=== PATIENT | female | born 1940 | race Caucasian/White ===

== ENCOUNTER → 2018-05-16 08:07 | Outpatient (REF) | payer OTHER, SELFPAY ==
[2018-05-16 22:00] LABS: HCT 39.2 % (36.0-46.0); HGB 12.8 g/dL (12.0-15.5); Mean Corp. HGB Concentration 32.7 g/dL (32.0-36.0); Mean Corpuscular Volume 94.9 fL (80-95); Platelet Count 267 x1000/uL (130-400); RBC 4.13 m/cumm (4.00-5.20); RBC Distribution Width 12.9 % (11.7-14.6); White Blood Cell Count 5.59 k/cumm (4.4-10.8)
[2018-05-16 22:37] LABS: ALT 30 U/L (12-78); AST 20 U/L (15-37); Albumin 3.6 g/dL (3.4-5.0); Alkaline Phosphatase 103 U/L (46-116); Anion Gap 7.8 mmol/L (3-11); BUN 9 mg/dL (7-18); Bilirubin, Total 0.4 mg/dL (0.2-1.0); CO2 27.2 mmol/L (21.0-32.0); CREATININE 0.78 mg/dL (0.55-1.02); Calcium 8.9 mg/dL (8.5-10.1); Chloride 105 mmol/L (98-107); Cholesterol 229 mg/dL (50-200); Glucose 93 mg/dL (70-100); HDL Cholesterol 97 mg/dL (40-60); LDL CHOLESTEROL 118 mg/dL (<100); Potassium 4.2 mmol/L (3.5-5.1); Sodium 140 mmol/L (136-145); TSH (W/Ref FT4) 2.19 uIU/mL (0.358-3.74); Total Protein 7.1 g/dL (6.4-8.2); Triglyceride 59 mg/dL (30-150)
== END ==
LOC: NCHCN 08:07
PROVIDERS: PCP Nurse Practitioner Family; Visit Provider Nurse Practitioner Family
DX: K62.5 Hemorrhage of anus and rectum (principal); F10.10 Alcohol abuse, uncomplicated; Z87.898 Personal history of other specified conditions
CPT/HCPCS: 80053; 80061; 83721; 85027; 84443

== ENCOUNTER 2018-07-03 09:56 | Outpatient (REF) | payer OTHER, SELFPAY ==
[2018-07-04 06:04] LABS: Vitamin D 25 Total 31.4 ng/ml (30-100)
== END 2018-07-03 10:16 ==
LOC: NCHCN 09:56
PROVIDERS: PCP Nurse Practitioner Family; Visit Provider Nurse Practitioner Family
DX: M85.80 Other specified disorders of bone density and structure, unspecified site (principal)
CPT/HCPCS: 82306

== ENCOUNTER 2019-12-23 16:36 | Outpatient (REF) | payer OTHER, SELFPAY ==
[2019-12-23 23:09] LABS: Anion Gap 8.6 mmol/L (3-11); BUN 17 mg/dL (7-18); CO2 30.4 mmol/L (21.0-32.0); CREATININE 0.66 mg/dL (0.55-1.02); Calcium 9.5 mg/dL (8.5-10.1); Chloride 101 mmol/L (98-107); Glucose 87 mg/dL (74-106); Magnesium 2.2 mg/dL (1.8-2.4); Potassium 4.1 mmol/L (3.5-5.1); Sodium 140 mmol/L (136-145); Vitamin B12 610 pg/mL (193-986)
== END 2019-12-23 16:56 ==
LOC: NCHCN 16:36
PROVIDERS: PCP Nurse Practitioner Family; Visit Provider Nurse Practitioner Family
DX: Z51.81 Encounter for therapeutic drug level monitoring (principal)
CPT/HCPCS: 80048; 82607; 83735

== ENCOUNTER 2020-12-09 16:23 | Outpatient (REF) | payer OTHER, SELFPAY ==
[2020-12-09 19:52] LABS: Absolute Basophil Count 0.05 10^3/uL (0.0-0.2); Absolute Eosinophil Count 0.17 10^3/uL (0.0-0.7); Absolute Monocyte Count 0.61 10^3/uL (0.1-0.8); Absolute Neutrophil Count 3.77 10^3/uL (1.2-6.7); Basophils % 0.9; HCT 37.6 % (36.0-46.0); HGB 12.3 g/dL (11.2-15.7); Lymphocytes % 17.9; MCH 30.9 pg (27.0-33.0); MCHC 32.7 % (32.0-36.0); MCV 94.5 fL (80-95); MPV 9.6 fL (8.0-11.0); Monocytes % 10.9; Neutrophils % 67.3; Nucleated RBC 0 %; Platelet Count 241 10^3/uL (130-400); RBC 3.98 10^6/uL (3.93-5.22); RDW-SD 41.8 fL
[2020-12-09 20:14] LABS: ALT 132 U/L (14-59); AST 93 U/L (15-37); Albumin 3.5 g/dL (3.4-5.0); Alkaline Phosphatase 214 U/L (46-116); Anion Gap 11.4 mmol/L (3-11); BUN 9 mg/dL (7-18); Bilirubin, Total 0.3 mg/dL (0.2-1.0); CO2 25.6 mmol/L (21.0-32.0); CREATININE 0.7 mg/dL (0.55-1.02); Calcium 9.1 mg/dL (8.5-10.1); Chloride 103 mmol/L (98-107); Glucose 99 mg/dL (74-106); Potassium 3.9 mmol/L (3.5-5.1); Sodium 140 mmol/L (136-145); Total Protein 7.4 g/dL (6.4-8.2)
[2020-12-09 20:58] LABS: Uric Acid 3.1 mg/dL (2.6-6.0)
== END 2020-12-09 16:24 | disposition home or self-care (01) ==
LOC: NCHCN 16:23
PROVIDERS: PCP Nurse Practitioner Family; Visit Provider Nurse Practitioner Family
DX: M79.89 Other specified soft tissue disorders (principal); Z13.828 Encounter for screening for other musculoskeletal disorder; R79.89 Other specified abnormal findings of blood chemistry
CPT/HCPCS: 80053; 84550; 85025

== ENCOUNTER 2020-12-23 20:40 | Outpatient (REF) | payer OTHER, SELFPAY ==
[2020-12-23 21:19] LABS: ALT 33 U/L (14-59); AST 20 U/L (15-37); Albumin 3.7 g/dL (3.4-5.0); Alkaline Phosphatase 136 U/L (46-116); Anion Gap 9.2 mmol/L (3-11); BUN 15 mg/dL (7-18); Bilirubin, Total 0.2 mg/dL (0.2-1.0); CO2 28.8 mmol/L (21.0-32.0); CREATININE 0.8 mg/dL (0.55-1.02); Calculated LDL 120 mg/dL (<100); Chloride 102 mmol/L (98-107); Cholesterol 226 mg/dL (<200); Glucose 112 mg/dL (74-106); HDL Cholesterol 79 mg/dL (40-60); Potassium 4.2 mmol/L (3.5-5.1); Sodium 140 mmol/L (136-145); Total Protein 7.4 g/dL (6.4-8.2); Triglyceride 136 mg/dL (<150)
[2020-12-27 10:01] LABS: HBs Antibody, Quant 24.6 mIU/mL (See Note); Hepatitis B Surface Ab Positive (See Note)
[2020-12-27 11:02] LABS: Hepatitis C Ab w Rflx HCV PCR Negative (Negative)
== END 2020-12-23 20:41 | disposition home or self-care (01) ==
LOC: NCHCN 20:40
PROVIDERS: PCP Nurse Practitioner Family; Visit Provider Nurse Practitioner Family
DX: R94.5 Abnormal results of liver function studies (principal); Z11.59 Encounter for screening for other viral diseases; E78.89 Other lipoprotein metabolism disorders
CPT/HCPCS: 80053; 80061; 86706; 86803

== ENCOUNTER 2021-01-10 15:56 | Outpatient (REF) | payer OTHER, SELFPAY ==
[2021-01-10 21:22] LABS: GGT 51 U/L (5-55)
[2021-01-10 21:24] LABS: Hemoglobin A1C 5.7 % (<5.7)
[2021-01-10 21:48] LABS: Vitamin D 25 Total 44.5 ng/mL (30-100)
== END 2021-01-10 15:57 | disposition home or self-care (01) ==
LOC: NCHCN 15:56
PROVIDERS: PCP Nurse Practitioner Family; Visit Provider Nurse Practitioner Family
DX: R73.9 Hyperglycemia, unspecified (principal); E55.9 Vitamin D deficiency, unspecified; M81.0 Age-related osteoporosis without current pathological fracture; R74.8 Abnormal levels of other serum enzymes
CPT/HCPCS: 82306; 82977; 83036

== ENCOUNTER 2021-04-04 20:21 | Outpatient (REF) | payer OTHER, SELFPAY ==
[2021-04-04 20:35] LABS: HCT 39.2 % (36.0-46.0); HGB 12.5 g/dL (11.2-15.7); MCH 30.7 pg (27.0-33.0); MCHC 31.9 % (32.0-36.0); MCV 96.3 fL (80-95); MPV 9.7 fL (8.0-11.0); Platelet Count 255 10^3/uL (130-400); RBC 4.07 10^6/uL (3.93-5.22); RDW 12.8 % (11.7-14.6); WBC 6.88 10^3/uL (4.4-10.8)
[2021-04-04 20:54] LABS: ALT 23 U/L (14-59); AST 17 U/L (15-37); Albumin 3.8 g/dL (3.4-5.0); Alkaline Phosphatase 82 U/L (46-116); Anion Gap 9.8 mmol/L (3-11); BUN 16 mg/dL (7-18); Bilirubin, Total 0.3 mg/dL (0.2-1.0); CO2 27.2 mmol/L (21.0-32.0); CREATININE 0.8 mg/dL (0.55-1.02); Calcium 9.6 mg/dL (8.5-10.1); Chloride 105 mmol/L (98-107); Glucose 91 mg/dL (74-106); Sodium 142 mmol/L (136-145); Total Protein 7.2 g/dL (6.4-8.2)
== END 2021-04-04 20:22 | disposition home or self-care (01) ==
LOC: NCHCN 20:21
PROVIDERS: PCP Nurse Practitioner Family; Visit Provider Nurse Practitioner Family
DX: R94.5 Abnormal results of liver function studies (principal)
CPT/HCPCS: 80053; 85027

== ENCOUNTER 2021-04-06 18:42 | Outpatient (REF) | payer OTHER, SELFPAY | END 2021-04-06 18:43 | disposition home or self-care (01) | LOC: NCHCN 18:42 | PROVIDERS: PCP Nurse Practitioner Family; Visit Provider Nurse Practitioner Family | DX: R19.7 Diarrhea, unspecified (principal) | CPT/HCPCS: 87505 ==

== ENCOUNTER 2021-04-07 14:45 | Outpatient (REF) | payer OTHER, SELFPAY | END 2021-04-07 14:46 | disposition home or self-care (01) | LOC: NCHCN 14:45 | PROVIDERS: PCP Nurse Practitioner Family; Visit Provider Nurse Practitioner Family | DX: R19.7 Diarrhea, unspecified (principal) | CPT/HCPCS: 87329; 83630 ==

== ENCOUNTER 2021-11-16 03:04 | Outpatient (CLI) | payer MEDICARE, SELFPAY ==
[2021-11-16 09:30] VITALS: BP 109/73; PULSE 63; RESP 16; TEMP 36.8; O2SAT 95
[2021-11-16 09:45] VITALS: BP 109/73; PULSE 95; RESP 16; TEMP 36.8; O2SAT 95
[2021-11-16] MEDS: Normal Saline 250 ML 125 ML IV (09:48)
[2021-11-16 11:52] VITALS: BP 130/62; PULSE 57; RESP 15; TEMP 36.7; O2SAT 95
== END 2021-11-16 03:05 | disposition home or self-care (01) ==
PROVIDERS: PCP Nurse Practitioner Family; Visit Provider Family Medicine
DX: U07.1 COVID-19 (principal)
CPT/HCPCS: 96365; Q0047

== ENCOUNTER 2022-04-25 18:41 | Outpatient (REF) | payer MEDICARE, SELFPAY ==
[2022-04-25 20:51] LABS: HCT 39.5 % (36.0-46.0); HGB 13.1 g/dL (11.2-15.7); MCH 31.3 pg (27.0-33.0); MCHC 33.2 % (32.0-36.0); MCV 94 fL (80-95); MPV 9.3 fL (8.0-11.0); Platelet Count 271 10^3/uL (130-400); RBC 4.19 10^6/uL (3.93-5.22); RDW 12.3 % (11.7-14.6); RDW-SD 42.7 fL; WBC 7.33 10^3/uL (4.4-10.8)
[2022-04-25 21:10] LABS: ALT 27 U/L (14-59); AST 22 U/L (15-37); Albumin 3.8 g/dL (3.4-5.0); Alkaline Phosphatase 80 U/L (46-116); BUN 16 mg/dL (7-18); Bilirubin, Total 0.3 mg/dL (0.2-1.0); CREATININE 0.8 mg/dL (0.55-1.02); Calcium 9.2 mg/dL (8.5-10.1); Calculated LDL 132 mg/dL (<100); Chloride 104 mmol/L (98-107); Cholesterol 254 mg/dL (<200); Glucose 98 mg/dL (74-106); HDL Cholesterol 98 mg/dL (40-60); Magnesium 2.2 mg/dL (1.8-2.4); Potassium 3.9 mmol/L (3.5-5.1); Sodium 142 mmol/L (136-145); Total Protein 7.6 g/dL (6.4-8.2); Triglyceride 121 mg/dL (<150)
[2022-04-27 05:29] LABS: Vitamin D 25 Total 39.6 ng/mL (30-100)
== END 2022-04-25 18:42 | disposition home or self-care (01) ==
LOC: NCHCN 18:41
PROVIDERS: PCP Nurse Practitioner Family; Visit Provider Nurse Practitioner Family
DX: E55.9 Vitamin D deficiency, unspecified (principal); E78.79 Other disorders of bile acid and cholesterol metabolism
CPT/HCPCS: 80053; 80061; 82306; 85027; 83735

== ENCOUNTER 2023-02-26 21:44 | Outpatient (REF) | payer MEDICARE, SELFPAY ==
[2023-02-26 21:55] LABS: HCT 38.3 % (36.0-46.0); HGB 12.8 g/dL (11.2-15.7); MCH 31.2 pg (27.0-33.0); MCHC 33.4 % (32.0-36.0); MCV 93 fL (80-95); MPV 10.1 fL (8.0-11.0); Platelet Count 325 10^3/uL (130-400); RDW 12.6 % (11.7-14.6); WBC 9.44 10^3/uL (4.4-10.8)
[2023-02-26 22:06] LABS: ALT 34 U/L (14-59); AST 22 U/L (15-37); Albumin 3.8 g/dL (3.4-5.0); Alkaline Phosphatase 91 U/L (46-116); Anion Gap 9.2 mmol/L (3-11); BUN 9 mg/dL (7-18); Bilirubin, Total 0.3 mg/dL (0.2-1.0); CO2 28.8 mmol/L (21.0-32.0); CREATININE 0.8 mg/dL (0.55-1.02); Calcium 9.5 mg/dL (8.5-10.1); Chloride 105 mmol/L (98-107); Estimated GFR 73.52 (mL/min/1.73m2); Glucose 126 mg/dL (74-106); Potassium 3.8 mmol/L (3.5-5.1); Sodium 143 mmol/L (136-145); Total Protein 7.8 g/dL (6.4-8.2)
== END 2023-02-26 21:45 | disposition home or self-care (01) ==
LOC: NCHCN 21:44
PROVIDERS: PCP Nurse Practitioner Family; Visit Provider Internal Medicine
DX: R06.02 Shortness of breath (principal)
CPT/HCPCS: 80053; 85027